=== PATIENT | female | born 1990 | race African-American/Black ===

== ENCOUNTER → 2016-02-25 11:10 | Outpatient (CLI) | payer MEDICAID ==
[2014-08-05 21:15] VITALS: BMI 37.0
[~2016-02-25 11:10] MED LIST: ACETAMINOPHEN325 MG PO; IBUPROFEN600 MG PO; PERCOCET 5-3251 TAB PO; PRENATAL COMPLE1 TAB PO; ZOFRAN4 MG PO
[2016-02-25 14:01] LABS: APPEARANCE CLEAR (CLEAR); COLOR YELLOW (YELLOW)
[2016-02-25 14:02] LABS: BILIRUBIN NEGATIVE (NEGATIVE); GLUCOSE NEGATIVE (NEGATIVE); KETONE NEGATIVE (NEGATIVE); LEUKOCYTE ESTERASE NEGATIVE (NEGATIVE); NITRITE NEGATIVE (NEGATIVE); PROTEIN NEGATIVE (NEGATIVE); SPECIFIC GRAVITY 1.015 (1.005-1.020); UROBILINOGEN NORMAL (NORMAL)
== END | disposition home or self-care (01) ==
LOC: D.LDO 11:10
PROVIDERS: Specialist
DX: Z34.83 Encounter for supervision of other normal pregnancy, third trimester (principal); Z3A.32 32 weeks gestation of pregnancy; R03.1 Nonspecific low blood-pressure reading

== ENCOUNTER → 2016-03-24 12:04 | Outpatient (CLI) | payer MEDICAID ==
[2014-08-05 21:15] VITALS: BMI 37.0
== END | disposition home or self-care (01) ==
LOC: D.LDO 12:04
DX: O36.8130 Decreased fetal movements, third trimester, not applicable or unspecified (principal); Z3A.36 36 weeks gestation of pregnancy

== ENCOUNTER → 2016-03-27 14:38 | Outpatient (CLI) | payer MEDICAID ==
[2014-08-05 21:15] VITALS: BMI 37.0
== END | disposition home or self-care (01) ==
LOC: D.LDO 14:38
DX: Z34.83 Encounter for supervision of other normal pregnancy, third trimester (principal); Z3A.36 36 weeks gestation of pregnancy

== ENCOUNTER → 2016-04-05 21:17 | Outpatient (CLI) | payer MEDICAID ==
[2014-08-05 21:15] VITALS: BMI 37.0
[2016-04-05 22:14] LABS: APPEARANCE CLEAR (CLEAR); COLOR YELLOW (YELLOW); LEUKOCYTE ESTERASE NEGATIVE (NEGATIVE); SPECIFIC GRAVITY 1.015 (1.005-1.020)
[2016-04-05 22:15] LABS: BILIRUBIN NEGATIVE (NEGATIVE); GLUCOSE NEGATIVE (NEGATIVE); KETONE NEGATIVE (NEGATIVE); NITRITE NEGATIVE (NEGATIVE); PROTEIN NEGATIVE (NEGATIVE); UROBILINOGEN NORMAL (NORMAL)
== END | disposition home or self-care (01) ==
LOC: D.LDO 21:17 → D.ER 21:17
PROVIDERS: Obstetrics & Gynecology
DX: Z34.83 Encounter for supervision of other normal pregnancy, third trimester (principal); Z3A.37 37 weeks gestation of pregnancy

== ENCOUNTER 2016-04-15 05:13 | Inpatient (IN) | payer MEDICAID ==
[~2016-04-15] VITALS: Ht 162.6 cm; Wt 119.7 kg
[~2016-04-15 05:13] MED LIST changes: -PRENATAL COMPLE1 TAB PO
[2016-04-15] MEDS ORDERED: PRENATAL COMPLE1 TAB PO (06:12)
[2016-04-15] MEDS ORDERED: ZOFRAN4 MG PO (06:13)
[2016-04-15 06:15] VITALS: BP 115/57; Ht 162.6 cm; Wt 119.7 kg
[2016-04-15 06:57] LABS: HEMATOCRIT 30.3 % (36.0-48.0); HEMOGLOBIN 9.6 g/dL (12-16); MCH 26.2 pg (26.0-34.0); MCHC 31.7 g/dL (31.0-37.0); MCV 82.6 fL (80.0-100.0); MEAN PLATELET VOLUME 9.8 fL (7.4-10.4); RBC 3.67 10x6/uL (4.00-5.40); RDW 15.3 % (11.5-14.5); WBC 7.8 10x3/uL (4.8-10.8)
[2016-04-15 07:05] LABS: APPEARANCE HAZY (CLEAR); BILIRUBIN NEGATIVE (NEGATIVE); COLOR YELLOW (YELLOW); GLUCOSE NEGATIVE (NEGATIVE); KETONE NEGATIVE (NEGATIVE); LEUKOCYTE ESTERASE TRACE (NEGATIVE); NITRITE NEGATIVE (NEGATIVE); PROTEIN TRACE mg/dL (NEGATIVE); RED CELLS - URINE 0-5 /hpf (0-5); UROBILINOGEN NORMAL (NORMAL); WHITE CELLS - URINE 0-5 /hpf (0-5)
[2016-04-15 07:06] LABS: BACTERIA MODERATE /hpf (NONE SEEN); EPITHELIAL CELLS 0-5 /hpf (0-5); MUCUS <1+ /lpf (NONE SEEN)
--- NOTE | 2016-04-15 15:30 | NUR ---
PT WAS RECEIVED FROM LABOR AND DELIVERY BY WHEELCHAIR AND WAS PUT IN BED. SHE OFFER NO COMPLAINTS EXCEPT BEING HUNGRY. GOT HER ANAIS APPLE JUICE AND SOME SNACKS. GEN- AWAKE AND ALERT. LUNGS- CLEAR. HEART- RRR. ABD- SOFT, WITH TENDERNESS, FUNDUS FIRM AT [facility]. SMALL LOCIA RUBRA NOTED. EXT- SMALL AMT OF LE EDEMA NOTED. BED IS LOW, SIDE RAILS UP X 2 AND CALL LIGHT IN REACH.
--- NOTE | 2016-04-15 16:02 | NUR ---
PT REQUEST MED FOR PAIN. GIVEN OXYCODONE/ACET 5/325 AND IBUPROFEN FOR BACK AND PERINEAL PAIN WHICH IS A 7.
--- NOTE | 2016-04-15 16:58 | NUR ---
PT C/O BEING COLD AND WOULD LIKE A WARM BLANKET. SHE IS SHAKING. GOT HER A BLANKET FROM THE WARMER. PT STATES HER BACK IS STILL BOTHERING HER. SUGGESTED IN A LITTLE WHILE THAT SHE GET UP AND WALK AROUND. SHE HAS RECEIVED PERCOCET AND IBUPROFEN.
--- NOTE | 2016-04-15 18:34 | NUR ---
PT IS RESTING IN BED. STATE SHE FEELS LIKE SHE IS HAVING GAS PAINS. SHE IS GOING TO GET UP AND WALK IN A LITTLE BIT. FOB IS AT BEDSIDE. BED IS LOW, SIDE RAILS UPX 2 AND CALL LIGHT IN REACH.
[2016-04-15 19:15] VITALS: BP 133/74
--- NOTE | 2016-04-15 19:15 | NUR ---
PT RECEIVED LYING IN BED AAOX3. FOB AT BEDSIDE. VSS. RATES PAIN 5/10. S/L NOTED TO LEFT FOREARM. HEART RRR. LUNG SOUNDS CLEAR BILATERALLY. BOWEL SOUNDS ACTIVE X4 QUADRENTS. ABDOMEN SOFT. FFM. PT STATES LOCHIA HAS BEEN LIGHT TO MODERATE THROUGHOUT THE DAY. MODERATE LOCHIA RUBRA NOTED TO EULOGIO PAD AT THIS TIME. PERINEAL AREA FREE OF EDEMA. PT STATES SHE WOULD LIKE TO WAIT A LITTLE BIT BEFORE TAKING A SHOWER. INFORMED PT TO PRESS CALL LIGHT WHEN SHE WAS READY. DENIES OTHER NEEDS AT THIS TIME. BED LOW. PHONE AND CALL LIGHT IN REACH. SRX2.
--- NOTE | 2016-04-15 20:38 | NUR ---
ADMINISTERED PERCOCET PO PER ORDERS AT THIS TIME FOR PT C/O PAIN 08/24. STATES PAIN FEELS LIKE SHARP GAS PAINS THAT COME AND GO. COVERED S/L AT THIS TIME SO PT COULD GET IN SHOWER. PT REQUESTS ICE WATER. DENIES OTHER NEEDS. BED LOW. PHONE AND CALL LIGHT IN REACH. SRX2.
--- NOTE | 2016-04-15 20:40 | NUR ---
PT. STATES SHE HAS BURNING OF PERINEL AREA WITH URINATION. INQUIRED IF PT. HAD EULOGIO BOTTLE AND BETADINE. PT. DENIES HAVING EITHER. BOTH ITEMS SUPPLIED TO PT. AND INSTRUCTED PT. ON USE. SUGGESTED PT. USE EULOGIO BOTTLE WHILE URINATING TO HELP RELIEVE "STINGING" FEELING. PT. STATES UNDERSTANDING. WS NURSE ASSISTING PT. TO PREPARE FOR SHOWER. PT.HOLDING AT PRESENT.
--- NOTE | 2016-04-15 21:45 | NUR ---
PT SITTING UP IN CHAIR AT THIS TIME WITH ON CHEST. REASSESSED PTS PAIN. RATES PAIN 3/10. DENIES NEEDS. BED LOW. PHONE AND CALL LIGHT IN REACH. SRX2.
--- NOTE | 2016-04-15 22:15 | NUR ---
PT UP USING SHOWER AT THIS TIME. BED LINENS CHANGED. FOB IN ROOM WITH PT. PT DENIES NEEDS. BED LOW. PHONE AND CALL LIGHT IN REACH. SRX2.
--- NOTE | 2016-04-15 22:54 | NUR ---
ADMINISTERED MOTRIN PO PER ORDERS AT THIS TIME FOR CRAMPS. PT RATES PAIN 6/10 DENIES OTHER NEEDS AT THIS TIME. BED LOW. PHONE AND CALL LIGHT IN REACH. SRX2.
[2016-04-16 00:04] VITALS: BP 113/56
--- NOTE | 2016-04-16 00:05 | NUR ---
PT RESTING QUIETLY AT THIS TIME WITH EYES CLOSED. AROUSED EASILY. REASSESSED PTS PAIN. RATES PAIN 8/10. STATES PAIN IS CRAMPING THAT COMES AND GOES. DENIES NEEDS. BED LOW. PHONE AND CALL LIGHT IN REACH. SRX2
--- NOTE | 2016-04-16 01:44 | NUR ---
DR. HENNESSY CALLED AND INFORMED OF PT. CONTINUED C/O ABD. [place]. STATES THAT HE DOES NOT WANT TO CHANGE PAIN MED ORDER.
--- NOTE | 2016-04-16 01:52 | NUR ---
PT SITTING UP IN BED HOLDING AT THIS TIME. REQUESTS BABY BE TAKEN BACK TO NURSERY. STATES CRAMPS COME AND GO AND ARE STILL VERY PAINFUL. STILL RATING PAIN 8/10. DENIES NEEDS. BED LOW. PHONE AND CALL LIGHT IN REACH. SRX2.
--- NOTE | 2016-04-16 03:46 | NUR ---
PT AT THIS TIME. DENIES NEEDS. BED LOW. PHONE AND CALL LIGHT IN REACH. SRX2.
--- NOTE | 2016-04-16 05:25 | NUR ---
PT SITTING UP IN BED WITH ON CHEST AT THIS TIME. DENIES NEEDS. BED LOW. PHONE AND CALL LIGHT IN REACH. SRX2.
--- NOTE | 2016-04-16 06:27 | NUR ---
REMOVED S/L AT THIS TIME PER PT REQUEST DUE TO C/O PAIN. CATHETER TIP INTACT. PT DENIES OTHER NEEDS AT THIS TIME.
--- NOTE | 2016-04-16 07:30 | NUR ---
PT IS RESTING IN BED. REQUEST PAIN MED. STATES PAIN IS A 7. FOB IS AT BEDSIDE. GEN- AWAKE AND ALERT, LUNGS- CLEAR. HEART- RRR, ABD -S SOFT WITH TENDERNESS NOTED. SMALL LOCIA RUBRA. EXT- NO EDEMA NOTED. BED IS LOW. CALL LIGHT IN REACH. SIDE RAILS UP X 2.
[2016-04-16 07:56] VITALS: BP 120/63
[2016-04-16 08:12] LABS: BASOPHILS 0.2 % (0.0-2.0); EOSINOPHILS 1.8 % (0-7); HEMATOCRIT 28.4 % (36.0-48.0); HEMOGLOBIN 9.1 g/dL (12-16); IMMATURE GRANULOCYTES 0.2 % (0-5); LYMPHOCYTES 32.4 % (15-50); MCH 26.4 pg (26.0-34.0); MCV 82.3 fL (80.0-100.0); MONOCYTES 5.4 % (2-11); PLATELET COUNT 224 10x3/uL (130-400); RBC 3.45 10x6/uL (4.00-5.40); RDW 15.5 % (11.5-14.5); WBC 9.3 10x3/uL (4.8-10.8)
[2016-04-16 08:22] LABS: RAPID PLASMA REAGIN Non Reactive (Non Reactive)
--- NOTE | 2016-04-16 08:30 | NUR ---
PT IS RESTING IN BED. STATES HER BACK IS STILL BOTHERING HER SOME. SHE OFFERS NO OTHER COMPLAINTS.
--- NOTE | 2016-04-16 09:30 | NUR ---
PT IS SLEEPING. FOB AT BEDSIDE. BED IS LOW, SIDE RAILS UP X 2 AND CALL LIGHT IN REACH.
--- NOTE | 2016-04-16 10:17 | NUR ---
Morelia Ortiz 04/16/16 S: Client states this is her 3rd baby. is going great. States she has been tandem nursing with her 2 year old. Has attempted to nurse the toddler while in the hospital and she still enjoys nursing. Has great experience with . O: Patient lying on her side in room, possible asleep, easily waken, OB sleeping in chair, in nursery. Informed I could come back later, patient states please come in. Praised for . Encouraged to continue to latch for every feeding this will help with establishing her milk supply. Explain to patient how to very is latched correctly at the breast, turn tummy to tummy, nose opposite of nipple, and allow to self-latch. Provided handouts and explained on feeding cues, skin to skin, waking a sleeping baby, engorgement, hand expression, and positions for . Supply and demand, what baby takes out her body will make more of. Asked if she receives WIC, patient states not yet, but does qualify, offer to make appointment. Made WIC appointment in [facility] at patient request on 04/21/16 at 10:00. Provided work cell number, please call or text as needed. Asked if any questions or needs, all declined, will follow up with patient. Patient thanked [facility] for information. A: Patient very sweet, confident with . P: Continue to support exclusively . KAY Guaman
--- NOTE | 2016-04-16 10:20 | NUR ---
PT I STILL RESTING IN BED. FOB AT BEDSIDE RESTING ALSO. PT OFFERS NO COMPLAINTS.
--- NOTE | 2016-04-16 11:24 | NUR ---
K Pad set up on bedside table per manfacture instructions. Explain to patient. Takes about 20 minuts to get to manfacture setting for heat. Placed to patients lower back per request. Cloting providing barrier. Instructed patient to call if pad is too warm. Verblized her understanding and I will recheck in 20 minutes.
--- NOTE | 2016-04-16 12:31 | NUR ---
CHECKED WITH PT AND SHE STATES THAT THE K PAD DOES NOT GET HOT ENOUGH. SO ITS NOT REALLY HELPING MUCH. I EXPLAINENED WE COULD NOT USE HEATING PADS. SHE UNDERSTANDS.
[2016-04-16] MEDS ORDERED: IBUPROFEN600 MG PO ×2 (13:22→13:25)
[2016-04-16] MEDS ORDERED: PERCOCET 5-3251 TAB PO (13:24)
--- NOTE | 2016-04-16 13:42 | NUR ---
DISCHARGE INSTRUCTIONS GIVEN TO PT. HANDOUTS, PRESCRIPTIONS AND FU APPT CARD GIVEN TO PT, PT TAKEN TO FRONT OF HOSPITAL BY WHEELCHAIR.
== END 2016-04-16 14:15 | disposition home or self-care (01) | DRG 774 ==
LOC: D.LD 05:13 → D.WS 16:00
PROVIDERS: ADMIT Obstetrics & Gynecology
PROC: 10E0XZZ Delivery of Products of Conception, External Approach (ICD-10-PCS; principal; 2016-04-15)
PROC: 3E033VJ Introduction of Other Hormone into Peripheral Vein, Percutaneous Approach (ICD-10-PCS; 2016-04-15)
DX: O99.02 Anemia complicating childbirth (principal); O98.52 Other viral diseases complicating childbirth; O99.344 Other mental disorders complicating childbirth; B00.9 Herpesviral infection, unspecified; F41.9 Anxiety disorder, unspecified; Z3A.39 39 weeks gestation of pregnancy; Z37.0 Single live birth

== ENCOUNTER 2016-05-26 06:27 | Day surgery (SDC) | payer MEDICAID ==
[2016-05-22 11:35] LABS: BASOPHILS 0.3 % (0.0-2.0); EOSINOPHILS 2.9 % (0-7); HEMATOCRIT 37.7 % (36.0-48.0); HEMOGLOBIN 11.9 g/dL (12-16); IMMATURE GRANULOCYTES 0.2 % (0-5); LYMPHOCYTES 34.8 % (15-50); MCH 25.6 pg (26.0-34.0); MCHC 31.6 g/dL (31.0-37.0); MCV 81.3 fL (80.0-100.0); MEAN PLATELET VOLUME 9.3 fL (7.4-10.4); MONOCYTES 4.4 % (2-11); NEUTROPHILS 57.4 % (40-80); RBC 4.64 10x6/uL (4.00-5.40); RDW 14.5 % (11.5-14.5); WBC 10.4 10x3/uL (4.8-10.8)
[2016-05-22 11:44] LABS: PLATELET COUNT 308 10x3/uL (130-400)
[~2016-05-26 06:27] MED LIST changes: +PRENATAL COMPLE1 TAB PO
[2016-05-26 06:30] LABS: HCG URINE NEGATIVE (NEGATIVE)
[2016-05-26] MEDS ORDERED: PERCOCET 5-3251 TAB PO (11:25)
[2016-05-26] MEDS ORDERED: IBUPROFEN600 MG PO (11:26)
== END 2016-05-26 11:45 | disposition home or self-care (01) ==
LOC: D.OPS 06:27
PROVIDERS: Obstetrics & Gynecology
DX: Z31.84 Encounter for fertility preservation procedure (principal); B00.9 Herpesviral infection, unspecified; F41.9 Anxiety disorder, unspecified

== ENCOUNTER 2020-05-15 18:10 | Emergency (ER) | payer MEDICAID ==
[~2020-05-15] VITALS: Ht 162.6 cm; Wt 79.5 kg
[~2020-05-15 18:10] MED LIST changes: +DEXAMETHASONE2 MG PO; +NAPROSYN500 MG PO; +PROTONIX40 MG PO
[2020-05-15 18:16] VITALS: Ht 162.6 cm; Wt 79.5 kg
[2020-05-15] MEDS ORDERED: ZOLOFT100 MG PO (18:17)
[2020-05-15] MEDS ORDERED: KLONOPIN0.5 MG PO (18:17)
[2020-05-15] MEDS ORDERED: WELLBUTRIN XL150 M1 PO (18:18)
[2020-05-15 18:46] LABS: CALC OSMOLALITY 274 mosm/kg (275-300); CALCIUM 8.7 mg/dL (8.5-10.1); CARBON DIOXIDE 24.5 mmol/L (21.0-32.0); CHLORIDE - SERUM 105 mmol/L (98-107); CREATININE - SERUM 0.7 mg/dL (0.6-1.3); GLUCOSE 94 mg/dL (74-106); POTASSIUM - SERUM 3.6 mmol/L (3.5-5.1); SODIUM 138 mmol/L (136-145); UREA NITROGEN 11 mg/dL (7-18); eGFR NON AFRICAN AMERICAN > 90 mL/min (90-120)
[2020-05-15 18:48] LABS: BASOPHILS 0.2 % (0-2); EOSINOPHILS 1.4 % (0-7); HEMATOCRIT 35.5 % (36.0-48.0); HEMOGLOBIN 11.3 g/dL (12-16); IMMATURE GRANULOCYTES 0.2 % (0-5); LYMPHOCYTE ABS# 2.68 10x3/uL (1.18-3.74); MCH 26.9 pg (26.0-34.0); MCHC 31.8 g/dL (31.0-37.0); MCV 84.5 fL (80.0-100.0); MONOCYTES 4.9 % (2-11); NEUTROPHIL ABS# 11.19 10x3/uL (1.56-6.13); NEUTROPHILS 75.3 % (40-80); PLATELET COUNT 405 10x3/uL (130-400); RDW 13.8 % (11.5-14.5); WBC 14.9 10x3/uL (4.8-10.8)
[2020-05-15 18:53] LABS: ALBUMIN 3.5 g/dL (3.4-5.0); ALKALINE PHOSPHATASE 60 U/L (30-120); ALT (SGPT) 30 U/L (10-68); BILIRUBIN - TOTAL 0.28 mg/dL (0.2-1.3); PROTEIN - SERUM 7.3 g/dL (6.4-8.2)
[2020-05-15 19:23] LABS: BILIRUBIN NEGATIVE (NEGATIVE); KETONE NEGATIVE (NEGATIVE); NITRITE NEGATIVE (NEGATIVE); UROBILINOGEN NORMAL mg/dL (< 2)
[2020-05-15] MEDS ORDERED: PHENERGAN25 M1 PO (22:02)
[2020-05-15 22:19] VITALS: BP 118/64
== END 2020-05-15 22:17 | disposition home or self-care (01) ==
LOC: D.ER 18:10
PROVIDERS: Family Medicine
DX: R11.2 Nausea with vomiting, unspecified (principal); T50.B95A Adverse effect of other viral vaccines, initial encounter